=== PATIENT | female | born 1940 | race Caucasian/White ===

== ENCOUNTER → 2017-11-24 | Outpatient (CLI) | payer MEDICARE ==
[~2017-11-24] MED LIST: APIX5TAB PO; ASCO500C18 PO; DIPH1TAB PO; FOLI0.8T22 PO; FURO40TA5 PO; GABA-529 PO; GLIP5TAB11 PO; MAGN250T10 PO; MEMA5TAB15 PO; METO25TA6 PO; POTA10TA11 PO; POTA20TA12 PO; ROPI3TAB3 PO; ROSU5TAB18 PO; SUCR1TAB2 PO; VITA400C19 PO
== END ==
LOC: RAH 09:16
PROVIDERS: ATTEND Physician Assistant Medical
DX: M25.711 Osteophyte, right shoulder (principal)
CPT/HCPCS: 73200

== ENCOUNTER → 2017-12-23 | Outpatient (CLI) | payer MEDICARE ==
[~2017-12-23] MED LIST changes: +ROSU5TAB11 PO; -ROSU5TAB18 PO
== END | disposition home or self-care (01) ==
LOC: RAH 13:24
PROVIDERS: ATTEND Physician Assistant Medical
DX: M47.896 Other spondylosis, lumbar region (principal); M47.892 Other spondylosis, cervical region; M41.86 Other forms of scoliosis, lumbar region; M85.89 Other specified disorders of bone density and structure, multiple sites; J90 Pleural effusion, not elsewhere classified; I70.90 Unspecified atherosclerosis
CPT/HCPCS: 72125; 72131

== ENCOUNTER → 2018-01-28 | Outpatient (CLI) | payer MEDICARE ==
[~2018-01-28] MED LIST changes: +REGADENOSON 0.4 MG/5 ML PF SYG IVP ONE
== END | disposition home or self-care (01) ==
LOC: SHCH 08:59
PROVIDERS: ATTEND Internal Medicine Cardiovascular Disease
DX: I25.119 Atherosclerotic heart disease of native coronary artery with unspecified angina pectoris (principal)
CPT/HCPCS: 78452; 93017; 96374; A9500 ×2; J2785

== ENCOUNTER 2018-02-04 18:00 | Inpatient (IN) | payer MEDICARE ==
[~2018-02-04] VITALS: Ht 147.3 cm; Wt 70.9 kg
[~2018-02-04 18:00] MED LIST changes: -POTA20TA12 PO; -REGADENOSON 0.4 MG/5 ML PF SYG IVP ONE; -ROSU5TAB11 PO
[2018-02-04] MEDS ORDERED: NITROGLYCERIN 0.4 MG SL TAB SL ONE (18:36)
[2018-02-04] MEDS ORDERED: SODIUM CHLORIDE 0.9% 250 ML IV ONE (18:36)
[2018-02-04] MEDS ORDERED: NITROGLYCERIN 1GM/1 INCH PACKET TD ONE (18:36)
[2018-02-04 18:40] LABS: BASOPHILS % (AUTO) 0.5 % (0.0-5.0); EOSINOPHILS % (AUTO) 1.4 % (0.0-8.0); HEMATOCRIT 30.5 % (36-48); LYMPHOCYTES % (AUTO) 10.8 % (21.0-51.0); MEAN CORPUSCULAR HGB CONC 35.3 g/dL (32.0-36.0); MEAN CORPUSCULAR VOLUME 96.3 fL (79-99); MONOCYTES % (AUTO) 8.3 % (3.0-13.0); NUCLEATED RED BLOOD CELLS 0.1 % (0.0-0.19); PLATELET COUNT (AUTO) 177 K/uL (130-400); RED BLOOD CELL COUNT(AUTO) 3.17 MIL/uL (4.00-5.50); RED CELL DISTRIBUTION WIDTH 15.9 % (11.0-15.5); WHITE BLOOD COUNT (AUTO) 5.2 K/uL (4.8-10.8)
[2018-02-04 18:53] LABS: CREATININE 1.8 mg/dL (0.5-1.5); POTASSIUM 4.4 mmol/L (3.5-5.1)
[2018-02-04 18:54] LABS: INR 1.03 (0.85-1.15); PARTIAL THROMBOPLASTIN TIME 26.6 SEC (26.3-35.5); PROTHROMBIN TIME 10.8 SEC (9.6-11.6)
[2018-02-04 18:58] LABS: ALBUMIN 3.1 g/dL (3.5-5.0); BILIRUBIN,TOTAL 0.7 mg/dL (0.2-1.0); TOTAL PROTEIN, SERUM 6.4 g/dL (6.0-8.3)
[2018-02-04] MEDS ORDERED: ONDANSETRON HCL 4 MG/2 ML VIAL ONE (19:37)
[2018-02-04] MEDS ORDERED: MORPHINE SULFATE 2 MG/ML 1ML SYG ONE ×2 (19:37→22:00)
[2018-02-05] VITALS (7 sets, daily range): BP systolic 108–131; BP diastolic 56–74
[2018-02-05] MEDS ORDERED: TRAMADOL HCL 50 MG TABLET PO PRN (02:15)
[2018-02-05 05:31] LABS: CREATINE KINASE MB 0.6 ng/mL (0.5-3.6); CREATINE KINASE, TOTAL 49 U/L (21-232); MYOGLOBIN 79 ng/mL (10-92); TROPONIN I < 0.04 ng/mL (0.00-0.06)
[2018-02-05] MEDS ORDERED: LABETALOL HCL 100 MG TABLET PO SCH (09:00)
[2018-02-05] MEDS ORDERED: ROPINIROLE HCL 1 MG TABLET PO SCH (09:00)
[2018-02-05] MEDS: ASPIRIN 81MG TAB.CHEW PO SCH (09:17)
[2018-02-05] MEDS ORDERED: AZITHROMYCIN 500MG+NS 250ML 250 ML IV SCH (09:45)
[2018-02-05] MEDS: APIXABAN 5 MG TABLET PO SCH ×2 (09:45→21:45)
[2018-02-05] MEDS ORDERED: CEFTRIAXONE 1GM/D5W 50ML 50 ML IV SCH (09:45)
[2018-02-05 09:47] LABS: CREATINE KINASE MB < 0.5 ng/mL (0.5-3.6); CREATINE KINASE, TOTAL 39 U/L (21-232); MYOGLOBIN 90 ng/mL (10-92); TROPONIN I < 0.04 ng/mL (0.00-0.06)
[2018-02-05] MEDS ORDERED: ACETAMINOPHEN 325 MG TAB PO PRN (10:00)
[2018-02-05] MEDS ORDERED: GLUCAGON 1MG KIT 1 MG ML IM PRN (10:00)
[2018-02-05] MEDS ORDERED: DEXTROSE 50%-WATER 50 ML DISP.SYRIN IV PRN (10:00)
[2018-02-05] MEDS: IPRATROPIUM/ALBUTEROL SULFATE 3 ML SOLUTION IH SCH ×2 (11:08→18:05)
[2018-02-05] MEDS: INSULIN HUMULIN R 100 UNIT/ML 3ML SQ SCH ×3 (11:30→21:00)
[2018-02-05] MEDS: CEFTRIAXONE SODIUM 1 GM IVP SCH (11:49)
[2018-02-05] MEDS: FUROSEMIDE 10 MG/ML 4ML VIAL IV SCH (13:58)
[2018-02-05 16:05] LABS: APPEARANCE,URINE Clear (CLEAR); BILIRUBIN,URINE Negative (NEGATIVE); COLOR,URINE Yellow (YELLOW); GLUCOSE, URINE (UA) Negative (NEGATIVE); KETONES,URINE Negative (NEGATIVE); LEUKOCYTE ESTERASE ,URINE Small (NEGATIVE); NITRATE,URINE Negative (NEGATIVE); OCCULT BLOOD,URINE Negative (NEGATIVE); PROTEIN,URINE Negative (NEGATIVE); UROBILINOGEN,URINE 0.2 mg/dL (0.2-1.0)
[2018-02-05 16:24] LABS: BACTERIA,URINE Rare /HPF (None Seen); RBC,URINE 0-1 /HPF (0-1); SQUAMOUS EPITHELIAL CELL,UR 0-2 /HPF (0-2)
[2018-02-05] MEDS: METHYLPREDNISOLONE SOD SUCC 40MG/ML 1ML IVP SCH (22:46)
[2018-02-05] MEDS: MEMANTINE HCL 5 MG TABLET PO SCH (22:46)
[2018-02-05] MEDS: METOPROLOL TARTRATE 25 MG TAB PO SCH (22:46)
[2018-02-06] MEDS: IPRATROPIUM/ALBUTEROL SULFATE 3 ML SOLUTION IH SCH ×5 (00:05→23:26)
[2018-02-06 03:57] LABS: CREATININE 1.9 mg/dL (0.5-1.5); POTASSIUM 4.1 mmol/L (3.5-5.1)
[2018-02-06 04:08] LABS: HEMATOCRIT 30.2 % (36-48); MEAN CORPUSCULAR HEMOGLOBIN 33.2 pg (27.0-33.0); MEAN CORPUSCULAR HGB CONC 34.6 g/dL (32.0-36.0); MEAN CORPUSCULAR VOLUME 96.1 fL (79-99); PLATELET COUNT (AUTO) 162 K/uL (130-400); RED BLOOD CELL COUNT(AUTO) 3.15 MIL/uL (4.00-5.50); RED CELL DISTRIBUTION WIDTH 15.5 % (11.0-15.5); WHITE BLOOD COUNT (AUTO) 5.5 K/uL (4.8-10.8)
[2018-02-06 04:17] VITALS: BP 121/77
[2018-02-06] MEDS: INSULIN HUMULIN R 100 UNIT/ML 3ML SQ SCH ×4 (06:41→21:09)
[2018-02-06 07:34] VITALS: BP 138/87
[2018-02-06] MEDS: APIXABAN 5 MG TABLET PO SCH ×2 (09:40→20:19)
[2018-02-06] MEDS: FOLIC ACID/VITAMIN B COMP W-C 1 MG CAPSULE PO SCH (09:42)
[2018-02-06] MEDS: ASCORBIC ACID 500 MG TAB PO SCH (09:42)
[2018-02-06] MEDS: ASPIRIN 81MG TAB.CHEW PO SCH (09:42)
[2018-02-06] MEDS: METHYLPREDNISOLONE SOD SUCC 40MG/ML 1ML IVP SCH ×2 (09:43→20:16)
[2018-02-06] MEDS: METOPROLOL TARTRATE 25 MG TAB PO SCH ×2 (09:43→20:17)
[2018-02-06] MEDS: ROPINIROLE HCL 1 MG TABLET PO SCH (09:43)
[2018-02-06] MEDS: VITAMIN E 400 UNIT CAPSULE PO SCH (09:43)
[2018-02-06] MEDS: MEMANTINE HCL 5 MG TABLET PO SCH ×2 (09:43→20:17)
[2018-02-06] MEDS: CEFTRIAXONE SODIUM 1 GM IVP SCH (09:44)
[2018-02-06 11:15] VITALS: BP 126/78
[2018-02-06] MEDS: FUROSEMIDE 10 MG/ML 4ML VIAL IV SCH (13:00)
[2018-02-06] MEDS: AMOXICILLIN/POTASSIUM CLAV 875-125 TABLET PO SCH ×2 (14:18→20:16)
[2018-02-06] MEDS: AZITHROMYCIN 250 MG TABLET PO SCH (14:19)
[2018-02-06 16:14] VITALS: BP 125/65
[2018-02-06 19:24] VITALS: BP 120/51
[2018-02-06 23:56] VITALS: BP 127/69
[2018-02-07 03:40] VITALS: BP 135/75
[2018-02-07 03:49] LABS: HEMATOCRIT 29.5 % (36-48); MEAN CORPUSCULAR HEMOGLOBIN 32.5 pg (27.0-33.0); MEAN CORPUSCULAR HGB CONC 34.3 g/dL (32.0-36.0); MEAN CORPUSCULAR VOLUME 94.8 fL (79-99); PLATELET COUNT (AUTO) 171 K/uL (130-400); RED BLOOD CELL COUNT(AUTO) 3.11 MIL/uL (4.00-5.50); RED CELL DISTRIBUTION WIDTH 15.3 % (11.0-15.5); WHITE BLOOD COUNT (AUTO) 7.6 K/uL (4.8-10.8)
[2018-02-07 03:58] LABS: CREATININE 1.8 mg/dL (0.5-1.5); POTASSIUM 4.7 mmol/L (3.5-5.1)
[2018-02-07 03:59] LABS: B-TYPE NATRIURETIC PEPTIDE 1720 pg/mL (0-100)
[2018-02-07] MEDS: IPRATROPIUM/ALBUTEROL SULFATE 3 ML SOLUTION IH SCH ×4 (06:05→23:35)
[2018-02-07] MEDS: INSULIN HUMULIN R 100 UNIT/ML 3ML SQ SCH ×4 (06:43→22:28)
[2018-02-07 07:45] VITALS: BP 127/72
[2018-02-07] MEDS: ASCORBIC ACID 500 MG TAB PO SCH (08:26)
[2018-02-07] MEDS: METOPROLOL TARTRATE 25 MG TAB PO SCH ×2 (08:26→22:20)
[2018-02-07] MEDS: VITAMIN E 400 UNIT CAPSULE PO SCH (08:26)
[2018-02-07] MEDS: ASPIRIN 81MG TAB.CHEW PO SCH (08:26)
[2018-02-07] MEDS: AMOXICILLIN/POTASSIUM CLAV 875-125 TABLET PO SCH ×2 (08:26→22:20)
[2018-02-07] MEDS: FOLIC ACID/VITAMIN B COMP W-C 1 MG CAPSULE PO SCH (08:26)
[2018-02-07] MEDS: MEMANTINE HCL 5 MG TABLET PO SCH ×2 (08:26→22:20)
[2018-02-07] MEDS: ROPINIROLE HCL 1 MG TABLET PO SCH (08:27)
[2018-02-07] MEDS: METHYLPREDNISOLONE SOD SUCC 40MG/ML 1ML IVP SCH (08:33)
[2018-02-07] MEDS: APIXABAN 5 MG TABLET PO SCH (08:33)
[2018-02-07] MEDS: AZITHROMYCIN 250 MG TABLET PO SCH (08:33)
[2018-02-07] MEDS ORDERED: SODIUM CHLORIDE 0.9% 500ML 500 ML IV SCH (09:53)
[2018-02-07] MEDS: FUROSEMIDE 20 MG TABLET PO SCH ×2 (10:51→18:50)
[2018-02-07 11:23] VITALS: BP 125/68
[2018-02-07] MEDS: FUROSEMIDE 10 MG/ML 4ML VIAL IV SCH (13:00)
[2018-02-07 16:22] VITALS: BP 116/79
[2018-02-07 19:38] VITALS: BP 115/71
[2018-02-07 23:58] VITALS: BP 129/50
[2018-02-08 03:56] LABS: BASOPHILS % (AUTO) 0.3 % (0.0-5.0); HEMATOCRIT 28.9 % (36-48); LYMPHOCYTES % (AUTO) 2.9 % (21.0-51.0); MEAN CORPUSCULAR VOLUME 94.3 fL (79-99); MONOCYTES % (AUTO) 3.4 % (3.0-13.0); NEUTROPHILS % (AUTO) 93.4 % (40.0-77.0); PLATELET COUNT (AUTO) 192 K/uL (130-400); RED BLOOD CELL COUNT(AUTO) 3.06 MIL/uL (4.00-5.50); RED CELL DISTRIBUTION WIDTH 15.1 % (11.0-15.5); WHITE BLOOD COUNT (AUTO) 7.6 K/uL (4.8-10.8)
[2018-02-08 04:02] LABS: CREATININE 1.9 mg/dL (0.5-1.5); POTASSIUM 4.3 mmol/L (3.5-5.1)
[2018-02-08 04:05] VITALS: BP 118/63
[2018-02-08 04:05] LABS: INR 1.03 (0.85-1.15); PARTIAL THROMBOPLASTIN TIME 25.8 SEC (26.3-35.5); PROTHROMBIN TIME 10.8 SEC (9.6-11.6)
[2018-02-08] MEDS ORDERED: PHARMACY COMMUNICATION MISC SCH (06:00)
[2018-02-08] MEDS: IPRATROPIUM/ALBUTEROL SULFATE 3 ML SOLUTION IH SCH ×3 (06:05→18:23)
[2018-02-08] MEDS: INSULIN HUMULIN R 100 UNIT/ML 3ML SQ SCH ×4 (06:16→20:52)
[2018-02-08] MEDS ORDERED: METHYLPREDNISOLONE 4 MG TABLET ONE (06:26)
[2018-02-08] MEDS: MEDROL DAY 1 BREAKFAST PO NR (06:44)
[2018-02-08 07:20] VITALS: BP 138/73
[2018-02-08] MEDS ORDERED: AZITHROMYCIN 250 MG TABLET PO ONE (08:14)
[2018-02-08] MEDS: AZITHROMYCIN 250 MG TABLET PO SCH (08:40)
[2018-02-08] MEDS: MEMANTINE HCL 5 MG TABLET PO SCH ×2 (08:40→20:51)
[2018-02-08] MEDS: METOPROLOL TARTRATE 25 MG TAB PO SCH ×2 (08:40→20:51)
[2018-02-08] MEDS: ROPINIROLE HCL 1 MG TABLET PO SCH (08:40)
[2018-02-08] MEDS: ASPIRIN 81MG TAB.CHEW PO SCH (08:40)
[2018-02-08] MEDS: ASCORBIC ACID 500 MG TAB PO SCH (08:41)
[2018-02-08] MEDS: FOLIC ACID/VITAMIN B COMP W-C 1 MG CAPSULE PO SCH (08:41)
[2018-02-08] MEDS: VITAMIN E 400 UNIT CAPSULE PO SCH (08:42)
[2018-02-08] MEDS: AMOXICILLIN/POTASSIUM CLAV 875-125 TABLET PO SCH ×2 (08:42→20:51)
[2018-02-08] MEDS: FUROSEMIDE 20 MG TABLET PO SCH (08:44)
[2018-02-08 11:10] VITALS: BP 128/67
[2018-02-08] MEDS: MEDROL DAY 1 LUNCH AND DINNER PO NR ×2 (12:44→17:21)
[2018-02-08 16:05] VITALS: BP 125/69
[2018-02-08 19:47] VITALS: BP 132/72
[2018-02-08] MEDS ORDERED: MEDROL DAY1 HS PO NR (21:00)
[2018-02-09] VITALS (12 sets, daily range): BP systolic 112–154; BP diastolic 63–90
[2018-02-09] MEDS: IPRATROPIUM/ALBUTEROL SULFATE 3 ML SOLUTION IH SCH ×4 (00:11→23:52)
[2018-02-09] MEDS: INSULIN HUMULIN R 100 UNIT/ML 3ML SQ SCH ×4 (05:45→21:00)
[2018-02-09] MEDS ORDERED: MEDROL DAY 2 BRK PO NR (07:30)
[2018-02-09 08:02] LABS: CREATININE 1.8 mg/dL (0.5-1.5); POTASSIUM 4.1 mmol/L (3.5-5.1)
[2018-02-09] MEDS: MEMANTINE HCL 5 MG TABLET PO SCH ×2 (08:49→21:17)
[2018-02-09] MEDS: ASPIRIN 81MG TAB.CHEW PO SCH (08:49)
[2018-02-09] MEDS: FOLIC ACID/VITAMIN B COMP W-C 1 MG CAPSULE PO SCH (08:49)
[2018-02-09] MEDS: METOPROLOL TARTRATE 25 MG TAB PO SCH ×2 (08:49→21:17)
[2018-02-09] MEDS: ROPINIROLE HCL 1 MG TABLET PO SCH (08:49)
[2018-02-09] MEDS: AMOXICILLIN/POTASSIUM CLAV 875-125 TABLET PO SCH ×2 (08:49→21:17)
[2018-02-09] MEDS: VITAMIN E 400 UNIT CAPSULE PO SCH (08:50)
[2018-02-09] MEDS: AZITHROMYCIN 250 MG TABLET PO SCH (08:50)
[2018-02-09] MEDS ORDERED: SODIUM CHLORIDE 0.9% 1000ML 1,000 ML IV SCH (09:15)
[2018-02-09] MEDS: MEDROL DAY 1 BREAKFAST PO NR (09:22)
[2018-02-09] MEDS ORDERED: ISOVUE-370 50ML VIAL IV ONE (09:57)
[2018-02-09] MEDS ORDERED: NITROGLYCERIN 5 MG/ML 10 ML VIAL IV ONE (09:57)
[2018-02-09] MEDS ORDERED: BIVALIRUDIN 250 MG/VIAL IV ONE (09:57)
[2018-02-09] MEDS ORDERED: IOPAMIDOL-370 75 ML VIAL IV ONE (09:57)
[2018-02-09] MEDS ORDERED: LIDOCAINE HCL 2% 20ML ONE (09:57)
[2018-02-09] MEDS ORDERED: MEDROL DAY 2 LCH PO NR (11:30)
[2018-02-09] MEDS: SODIUM CHLORIDE 0.9% 1000ML 1,000 ML IV SCH ×2 (13:12→22:18)
[2018-02-09] MEDS: FUROSEMIDE 40 MG TABLET PO SCH (13:23)
[2018-02-09] MEDS ORDERED: MEDROL DAY 2 DIN PO NR (16:30)
[2018-02-09] MEDS ORDERED: MEDROL DAY 2 HS PO NR (21:00)
[2018-02-10 00:35] VITALS: BP 118/67
[2018-02-10 04:01] LABS: CREATININE 1.7 mg/dL (0.5-1.5); POTASSIUM 3.3 mmol/L (3.5-5.1)
[2018-02-10 04:57] VITALS: BP 123/74
[2018-02-10] MEDS: IPRATROPIUM/ALBUTEROL SULFATE 3 ML SOLUTION IH SCH ×2 (06:05→11:18)
[2018-02-10] MEDS: INSULIN HUMULIN R 100 UNIT/ML 3ML SQ SCH ×2 (07:30→12:59)
[2018-02-10] MEDS ORDERED: MEDROL DAY 3 PO NR (07:30)
[2018-02-10 08:24] VITALS: BP 124/74
[2018-02-10] MEDS ORDERED: AZITHROMYCIN 250 MG TABLET PO SCH (09:00)
[2018-02-10] MEDS: MEMANTINE HCL 5 MG TABLET PO SCH (09:07)
[2018-02-10] MEDS: AMOXICILLIN/POTASSIUM CLAV 875-125 TABLET PO SCH (09:08)
[2018-02-10] MEDS: FOLIC ACID/VITAMIN B COMP W-C 1 MG CAPSULE PO SCH (09:08)
[2018-02-10] MEDS: METOPROLOL TARTRATE 25 MG TAB PO SCH (09:08)
[2018-02-10] MEDS: FUROSEMIDE 40 MG TABLET PO SCH (09:08)
[2018-02-10] MEDS: VITAMIN E 400 UNIT CAPSULE PO SCH (09:08)
[2018-02-10] MEDS: ROPINIROLE HCL 1 MG TABLET PO SCH (09:08)
[2018-02-10] MEDS ORDERED: POTASSIUM CHLORIDE 20 MEQ ERTAB PO PRN (10:15)
[2018-02-10] MEDS ORDERED: LIDOCAINE HCL-MPF 1% 2ML VIAL IVP PRN (10:15)
[2018-02-10] MEDS ORDERED: POTASSIUM CHLORIDE 20MEQ/100ML 100 ML IV PRN (10:15)
[2018-02-10] MEDS ORDERED: POTASSIUM CHLORIDE 10% ELIXIR 20 MEQ/15 ML UDCUP PO PRN (10:15)
[2018-02-10] MEDS ORDERED: ASPIRIN 81MG TAB.CHEW PO SCH (10:15)
[2018-02-10 12:23] VITALS: BP 123/83
[2018-02-10] MEDS ORDERED: POTA20TA12 PO (14:35)
[2018-02-10] MEDS ORDERED: ROSU5TAB11 PO (14:35)
[2018-02-11] MEDS ORDERED: MEDROL DAY 4 BKF PO NR (07:30)
[2018-02-11] MEDS ORDERED: MEDROL DAY 4 LCH PO NR (11:30)
[2018-02-11] MEDS ORDERED: MEDROL DAY 4 DIN PO NR (16:30)
[2018-02-12] MEDS ORDERED: MEDROL DAY 5 BKF PO NR (07:30)
[2018-02-12] MEDS ORDERED: MEDROL DAY 5 HS PO NR (21:00)
[2018-02-13] MEDS ORDERED: MEDROL DAY 6 PO NR (07:30)
== END 2018-02-10 17:00 | disposition home or self-care (01) | DRG 286 ==
LOC: EDH 18:00 → EDHIP 21:56 → OBSVTOIN 21:56 → 2AH 02-05 01:32
PROVIDERS: ADMIT Internal Medicine; ATTEND Internal Medicine
PROC: 4A023N7 Measurement of Cardiac Sampling and Pressure, Left Heart, Percutaneous Approach (ICD-10-PCS; principal; 2018-02-04)
PROC: B41F1ZZ Fluoroscopy of Right Lower Extremity Arteries using Low Osmolar Contrast (ICD-10-PCS; 2018-02-09)
PROC: B2111ZZ Fluoroscopy of Multiple Coronary Arteries using Low Osmolar Contrast (ICD-10-PCS; 2018-02-09)
DX: T82.858A Stenosis of other vascular prosthetic devices, implants and grafts, initial encounter (principal); J18.9 Pneumonia, unspecified organism; I50.43 Acute on chronic combined systolic (congestive) and diastolic (congestive) heart failure; I25.110 Atherosclerotic heart disease of native coronary artery with unstable angina pectoris; N17.9 Acute kidney failure, unspecified; I13.0 Hypertensive heart and chronic kidney disease with heart failure and stage 1 through stage 4 chronic kidney disease, or unspecified chronic kidney disease; N18.4 Chronic kidney disease, stage 4 (severe); E11.22 Type 2 diabetes mellitus with diabetic chronic kidney disease; I35.0 Nonrheumatic aortic (valve) stenosis; M19.90 Unspecified osteoarthritis, unspecified site; D63.1 Anemia in chronic kidney disease; E11.51 Type 2 diabetes mellitus with diabetic peripheral angiopathy without gangrene; E78.00 Pure hypercholesterolemia, unspecified; E78.5 Hyperlipidemia, unspecified; F03.90 Unspecified dementia, unspecified severity, without behavioral disturbance, psychotic disturbance, mood disturbance, and anxiety; F32.9 Major depressive disorder, single episode, unspecified; F41.9 Anxiety disorder, unspecified; G47.33 Obstructive sleep apnea (adult) (pediatric); G89.4 Chronic pain syndrome; I48.0 Paroxysmal atrial fibrillation; I48.2 Chronic atrial fibrillation; I77.1 Stricture of artery; I95.1 Orthostatic hypotension; K21.9 Gastro-esophageal reflux disease without esophagitis; Y83.9 Surgical procedure, unspecified as the cause of abnormal reaction of the patient, or of later complication, without mention of misadventure at the time of the procedure; M79.7 Fibromyalgia; Z79.899 Other long term (current) drug therapy; Z79.01 Long term (current) use of anticoagulants; Y92.89 Other specified places as the place of occurrence of the external cause; Z95.5 Presence of coronary angioplasty implant and graft; Z95.0 Presence of cardiac pacemaker; Z90.710 Acquired absence of both cervix and uterus; Z87.891 Personal history of nicotine dependence; Z90.10 Acquired absence of unspecified breast and nipple; Z85.3 Personal history of malignant neoplasm of breast; Z82.3 Family history of stroke; Z80.3 Family history of malignant neoplasm of breast; Z82.49 Family history of ischemic heart disease and other diseases of the circulatory system
CPT/HCPCS: 36415; 71045; 71250; 80048; 80053; 81001; 82550; 82553; 82948; 83735; 83874; 83880; 84132; 84484; 85025; 85027; 85610; 85730; 87040; 87088; 93005; 93306; 93458; 93925; 93971; 94640; 94664; A4218; C1760; C1894; J0456; J0583; J0696; J1644; J1815; J1940; J2405; J2920; J3490; J7030; J7509; Q9967

== ENCOUNTER → 2018-07-14 | Outpatient (CLI) | payer MEDICARE ==
[~2018-07-14] MED LIST changes: -POTA10TA11 PO; +POTA20TA12 PO; -ROPI3TAB3 PO; +ROPI3TAB5 PO; +ROSU5TAB11 PO
== END | disposition home or self-care (01) ==
LOC: RAH 09:07
PROVIDERS: ATTEND Internal Medicine Cardiovascular Disease
DX: I50.22 Chronic systolic (congestive) heart failure (principal); I25.10 Atherosclerotic heart disease of native coronary artery without angina pectoris; I48.91 Unspecified atrial fibrillation; E11.9 Type 2 diabetes mellitus without complications
CPT/HCPCS: 71046

== ENCOUNTER → 2019-01-19 | Outpatient (CLI) | payer MEDICARE ==
[~2019-01-19] MED LIST changes: -ASCO500C18 PO; +BACL10TA PO; -DIPH1TAB PO; +ESOM20CA31 PO; +FERS325 PO; -FURO40TA5 PO; +FURO40TA7 PO; +GLIP10TA9 PO; -GLIP5TAB11 PO; +LEVO500T2 PO; +METR250T PO; +ROPI1TAB38 PO; -ROPI3TAB5 PO; +SERT50TA12 PO; -SUCR1TAB2 PO; +TOLT4CAP13 PO
== END | disposition home or self-care (01) ==
LOC: RAH 10:48
PROVIDERS: ATTEND Internal Medicine Critical Care Medicine
DX: I73.9 Peripheral vascular disease, unspecified (principal)
CPT/HCPCS: 93922

== ENCOUNTER 2019-06-20 11:36 | Inpatient (IN) | payer MEDICARE, OTHER ==
[~2019-06-20] VITALS: Ht 147.3 cm; Wt 59.5 kg
[~2019-06-20 11:36] MED LIST changes: -ROSU5TAB11 PO; +ROSU5TAB12 PO
[2019-06-20 11:58] LABS: BASOPHILS % (AUTO) 0.6 % (0.0-5.0); EOSINOPHILS % (AUTO) 0.1 % (0.0-8.0); HEMATOCRIT 39.1 % (36-48); LYMPHOCYTES % (AUTO) 2.7 % (21.0-51.0); MEAN CORPUSCULAR HEMOGLOBIN 31.9 pg (27.0-33.0); MEAN CORPUSCULAR HGB CONC 32.8 g/dL (32.0-36.0); MEAN CORPUSCULAR VOLUME 97.4 fL (79-99); MONOCYTES % (AUTO) 8.3 % (3.0-13.0); NEUTROPHILS % (AUTO) 88.3 % (40.0-77.0); NUCLEATED RED BLOOD CELLS 1.1 % (0.0-0.19); PLATELET COUNT (AUTO) 99 K/uL (130-400); RED BLOOD CELL COUNT(AUTO) 4.01 MIL/uL (4.00-5.50); RED CELL DISTRIBUTION WIDTH 20.2 % (11.0-15.5); WHITE BLOOD COUNT (AUTO) 10.2 K/uL (4.8-10.8)
[2019-06-20 12:11] LABS: CREATININE 3.9 mg/dL (0.5-1.5); MAGNESIUM 2.9 mg/dL (1.80-2.40)
[2019-06-20 12:32] LABS: PLATELET MORPHOLOGY COMMENT DECREASED
[2019-06-20 12:33] LABS: B-TYPE NATRIURETIC PEPTIDE > 5000 pg/mL (0-100)
[2019-06-20] MEDS ORDERED: CALCIUM GLUCONATE 1 GM/10 ML VIAL IV ONE (13:13)
[2019-06-20] MEDS ORDERED: SODIUM CHLORIDE 0.9% 100 ML IV ONE (13:13)
[2019-06-20] MEDS ORDERED: SODIUM CHLORIDE 0.9% 250 ML IV ONE ×2 (13:15→13:16)
[2019-06-20] MEDS ORDERED: ONDANSETRON HCL 4 MG/2 ML VIAL ONE (14:35)
[2019-06-20] MEDS ORDERED: MORPHINE SULFATE 2 MG/ML 1ML SYG ONE (15:22)
[2019-06-20 16:00] LABS: POTASSIUM 5.9 mmol/L (3.5-5.1)
[2019-06-20] MEDS ORDERED: SODIUM POLYSTYRENE SULFONATE 15 GM/60 ML ML PO SCH (16:00)
[2019-06-20 16:18] LABS: CREATININE,URINE RANDOM 166 mg/dL (30-135); SODIUM,URINE RANDOM < 15 mmol/l (40-220)
[2019-06-20] MEDS ORDERED: SODIUM POLYSTYRENE SULFONATE 15 GM/60 ML ML ONE (16:41)
[2019-06-20 19:15] LABS: APPEARANCE,URINE Clear (CLEAR); BILIRUBIN,URINE Small (NEGATIVE); COLOR,URINE Dark Yellow (YELLOW); GLUCOSE, URINE (UA) Negative (NEGATIVE); KETONES,URINE Negative (NEGATIVE); LEUKOCYTE ESTERASE ,URINE Negative (NEGATIVE); NITRATE,URINE Negative (NEGATIVE); OCCULT BLOOD,URINE Negative (NEGATIVE); PROTEIN,URINE POS 1+ mg/dL (NEGATIVE)
[2019-06-20 19:19] LABS: BACTERIA,URINE Few /HPF (None Seen); SQUAMOUS EPITHELIAL CELL,UR 0-2 /HPF (0-2)
[2019-06-20 19:20] LABS: AMORPHOUS SEDIMENT,UR Few /LPF (None Seen); MUCUS,URINE Few LPF (None Seen)
[2019-06-20] MEDS ORDERED: FUROSEMIDE 10 MG/ML 4ML VIAL ONE (23:16)
[2019-06-21] VITALS (7 sets, daily range): BP systolic 100–124; BP diastolic 52–75
[2019-06-21 05:34] LABS: BASOPHILS % (AUTO) 0.2 % (0.0-5.0); HEMATOCRIT 35.4 % (36-48); LYMPHOCYTES % (AUTO) 3.6 % (21.0-51.0); MEAN CORPUSCULAR HEMOGLOBIN 31.2 pg (27.0-33.0); MEAN CORPUSCULAR HGB CONC 32.9 g/dL (32.0-36.0); MEAN CORPUSCULAR VOLUME 94.7 fL (79-99); MONOCYTES % (AUTO) 5.5 % (3.0-13.0); NEUTROPHILS % (AUTO) 90.7 % (40.0-77.0); NUCLEATED RED BLOOD CELLS 1.1 % (0.0-0.19); PLATELET COUNT (AUTO) 81 K/uL (130-400); RED BLOOD CELL COUNT(AUTO) 3.74 MIL/uL (4.00-5.50); RED CELL DISTRIBUTION WIDTH 20.4 % (11.0-15.5); WHITE BLOOD COUNT (AUTO) 11.7 K/uL (4.8-10.8)
[2019-06-21 06:04] LABS: ALBUMIN 3.1 g/dL (3.5-5.0); BILIRUBIN,TOTAL 2.3 mg/dL (0.2-1.0); CREATININE 3.9 mg/dL (0.5-1.5); MAGNESIUM 2.4 mg/dL (1.80-2.40); POTASSIUM 5.6 mmol/L (3.5-5.1); TOTAL PROTEIN, SERUM 6.1 g/dL (6.0-8.3)
[2019-06-21] MEDS ORDERED: LIDOCAINE HCL-MPF 1% 2ML VIAL IV PRN (08:30)
[2019-06-21] MEDS ORDERED: POTASSIUM CHLORIDE 20MEQ/100ML 100 ML IV PRN (08:30)
[2019-06-21] MEDS ORDERED: POTASSIUM CHLORIDE 20 MEQ ERTAB PO PRN (08:30)
[2019-06-21] MEDS: FUROSEMIDE 10 MG/ML 4ML VIAL IVP SCH ×3 (10:01→16:22)
[2019-06-21] MEDS ORDERED: SODIUM POLYSTYRENE SULFONATE 15 GM/60 ML ML PO SCH (10:15)
--- NOTE | 2019-06-21 13:40 | NUR ---
DC PLAN PATIENT AAOX2, DROWSY AND LETHARGIC. FAMILY MEMBER NOT AT BEDSIDE, INITIAL ASSESSMENT PENDING. Addendum: 06/21/19 at 1341 by JOAO LEAL Amended: Links added.
[2019-06-21] MEDS ORDERED: CARB-37 PO (15:34)
[2019-06-21] MEDS ORDERED: METO100T14 PO (15:34)
[2019-06-21] MEDS ORDERED: LEVE250T2 PO (15:34)
[2019-06-21] MEDS ORDERED: GABA-529 PO (15:34)
[2019-06-21] MEDS ORDERED: SACU1TAB PO (15:34)
[2019-06-21] MEDS ORDERED: FURO20TA6 PO (15:34)
[2019-06-21] MEDS ORDERED: SITA25TA5 PO (15:34)
[2019-06-21] MEDS ORDERED: IRON150C5 PO (15:34)
[2019-06-21] MEDS ORDERED: POTA10CA44 PO (15:34)
[2019-06-21] MEDS ORDERED: SERT100T PO (15:34)
--- NOTE | 2019-06-21 16:32 | NUR ---
RD NOTIFICATION Dx: Acute on Chronic Systolic, CHF. Hx: Afib, CAD, DM, Morbid obese, CHF. Diet: 75gmCCD. Pt with poor po intake of <25%, due to being in and out of sleep, and has poor appetite. No difficulty chewing food according to the pt however, might have some difficulties swallowing. RD recommends continue current diet, add 1200mls fluid restriction, and renal non-dialysis to diet order. RD recommends CONTINUOUS CONVEYOR SCREEN DRIER evaluation due to swallowing difficulties. RD will continue to monitor and follow up as needed. Sol Holm MS, RDN Addendum: 06/21/19 at [address] RD Amended: Links added.
--- NOTE | 2019-06-21 19:00 | NUR ---
Assumed care at 1900. Patient resting in bed in no apparent distress. Vital signs stable. No complaints of pain. Patient alert and oriented to self. Please see assessment for further detail. Will continue to monitor.
[2019-06-21] MEDS: INSULIN HUMULIN R 100 UNIT/ML 3ML SQ SCH (21:46)
[2019-06-22] VITALS (19 sets, daily range): BP systolic 82–118; BP diastolic 39–76
[2019-06-22] MEDS: DOBUTAMINE 250MG/D5 250ML 250 ML IV PRN ×2 (01:06→21:51)
--- NOTE | 2019-06-22 01:15 | NUR ---
Patient about to receive dobutamine drip when she was found have sustained heart rate at 128. RICARDO Benito notified. 5mg metoprolol ordered for heart rate control, and to hold dobutamine for tonight. Will continue to monitor.
--- NOTE | 2019-06-22 01:30 | NUR ---
Informed RICARDO Benito 5mg lopressor having no effect. I am to inform RICARDO Benito if HR greater than 140 as per his direction. No additional orders given. Will continue to monitor.
[2019-06-22] MEDS ORDERED: METOPROLOL TARTRATE 1 MG/ML 5ML VIAL IV ONE (02:26)
[2019-06-22 03:58] LABS: HEMATOCRIT 34.2 % (36-48); MEAN CORPUSCULAR HEMOGLOBIN 31.8 pg (27.0-33.0); MEAN CORPUSCULAR VOLUME 93.4 fL (79-99); NUCLEATED RED BLOOD CELLS 0.6 % (0.0-0.19); PLATELET COUNT (AUTO) 62 K/uL (130-400); RED BLOOD CELL COUNT(AUTO) 3.66 MIL/uL (4.00-5.50); RED CELL DISTRIBUTION WIDTH 19.6 % (11.0-15.5); WHITE BLOOD COUNT (AUTO) 9.2 K/uL (4.8-10.8)
[2019-06-22 04:26] LABS: ALBUMIN 2.9 g/dL (3.5-5.0); BILIRUBIN,TOTAL 1.9 mg/dL (0.2-1.0); CREATININE 3.6 mg/dL (0.5-1.5); POTASSIUM 3.7 mmol/L (3.5-5.1); TOTAL PROTEIN, SERUM 5.7 g/dL (6.0-8.3)
[2019-06-22] MEDS: METOPROLOL TARTRATE 1 MG/ML 5ML VIAL IV PRN ×2 (06:22→16:02)
[2019-06-22] MEDS: INSULIN HUMULIN R 100 UNIT/ML 3ML SQ SCH ×4 (06:38→21:00)
[2019-06-22] MEDS: METOPROLOL TARTRATE 50 MG TAB PO SCH ×2 (08:52→20:31)
[2019-06-22] MEDS: FUROSEMIDE 10 MG/ML 4ML VIAL IVP SCH ×3 (08:53→15:41)
--- NOTE | 2019-06-22 19:45 | NUR ---
DR. NOLAND ROUNDING. PT STABLE. AT BEDSIDE. NEW ORDER FOR DIGOXIN. PT CONTINUES AFIB 110'S. GBW NOTED. MCKINNEY IN PLACE. DR. NOLAND SUGGESTING PALLIATIVE CARE. WILL SPEAK TO . AND INFORM PRIMARY DOCTOR.
[2019-06-22] MEDS ORDERED: DIGOXIN 250 MCG/ML 2ML AMP IV SCH (20:00)
[2019-06-23] VITALS (7 sets, daily range): BP systolic 79–112; BP diastolic 49–63
[2019-06-23] MEDS: DOBUTAMINE 250MG/D5 250ML 250 ML IV PRN (00:02)
[2019-06-23] MEDS: DIGOXIN 250 MCG/ML 2ML AMP IV SCH ×3 (00:05→12:30)
[2019-06-23] MEDS: FUROSEMIDE 10 MG/ML 4ML VIAL IVP SCH ×4 (00:05→23:17)
[2019-06-23 04:07] LABS: BASOPHILS % (AUTO) 0.4 % (0.0-5.0); HEMATOCRIT 41.9 % (36-48); LYMPHOCYTES % (AUTO) 8.5 % (21.0-51.0); MEAN CORPUSCULAR HEMOGLOBIN 31.4 pg (27.0-33.0); MEAN CORPUSCULAR HGB CONC 33.8 g/dL (32.0-36.0); MEAN CORPUSCULAR VOLUME 92.9 fL (79-99); MONOCYTES % (AUTO) 6.6 % (3.0-13.0); NEUTROPHILS % (AUTO) 82.5 % (40.0-77.0); NUCLEATED RED BLOOD CELLS 0.4 % (0.0-0.19); PLATELET COUNT (AUTO) 64 K/uL (130-400); RED BLOOD CELL COUNT(AUTO) 4.51 MIL/uL (4.00-5.50); RED CELL DISTRIBUTION WIDTH 20.1 % (11.0-15.5); WHITE BLOOD COUNT (AUTO) 6.3 K/uL (4.8-10.8)
[2019-06-23 04:38] LABS: ALBUMIN 3.1 g/dL (3.5-5.0); BILIRUBIN,DIRECT 1.4 mg/dL (0.0-0.3); BILIRUBIN,TOTAL 2.4 mg/dL (0.2-1.0); CREATININE 2.5 mg/dL (0.5-1.5); PHOSPHORUS 4.1 mg/dL (2.5-4.9); TOTAL PROTEIN, SERUM 6.5 g/dL (6.0-8.3)
[2019-06-23 04:48] LABS: POTASSIUM 2.7 mmol/L (3.5-5.1)
[2019-06-23] MEDS: POTASSIUM CHLORIDE 10% ELIXIR 20 MEQ/15 ML UDCUP PO PRN ×2 (05:19→20:30)
[2019-06-23] MEDS: INSULIN HUMULIN R 100 UNIT/ML 3ML SQ SCH ×5 (06:17→21:00)
[2019-06-23 08:11] LABS: HEPATITIS A ANTIBODY IGM Negative (Negative); HEPATITIS B CORE IGM Negative (Negative); HEPATITIS Bs ANTIGEN SCREEN P Negative (Negative)
[2019-06-23] MEDS: METOPROLOL TARTRATE 50 MG TAB PO SCH ×2 (10:50→20:27)
--- NOTE | 2019-06-23 14:44 | NUR ---
DCP: HOME WITH [facility] Sw met with pt and . Sw educated on hospice services and answered all questions asked. states his MD recommended [facility] and he would like to use them. SW assisted with completing OOHDNR. SW spoke to [facility] and made referral. Pt info faxed to [facility] office.Waiting on acceptance and DME delivery. Pt will need ambulance transport. CM aware.
--- NOTE | 2019-06-23 16:01 | NUR ---
[facility] HOSPICE REFERRAL, JAIME ELINA AWARE. SS WILL MEET WITH PATIENT AND FAMILY.
--- NOTE | 2019-06-23 16:45 | NUR ---
DCP: HOME WITH [facility] IN AM SW recd call from [facility]. Pt accepted. DME ordered and will be there in 2-3 hours. needing time to get house ready for DME, requesting am discharge for comfort of pt. CM aware and agrees.
[2019-06-23] MEDS ORDERED: POTASSIUM CHLORIDE 10MEQ/100ML 100 ML IV PRN (17:45)
[2019-06-23] MEDS ORDERED: POTASSIUM CHLORIDE 20 MEQ ERTAB PO PRN (17:45)
[2019-06-23] MEDS ORDERED: LIDOCAINE HCL-MPF 1% 2ML VIAL IV PRN (17:45)
[2019-06-23] MEDS ORDERED: POTASSIUM CHLORIDE 10% ELIXIR 20 MEQ/15 ML UDCUP PO PRN (17:45)
[2019-06-23] MEDS ORDERED: SODIUM CHLORIDE 0.9% 500ML 500 ML IV SCH (19:45)
--- NOTE | 2019-06-23 20:00 | NUR ---
PT BLOOD PRESSURE, 79/47. NOTIFIED AJ MANAGER OPERATING. STATED TO BOLUS WITH 500ML BAG. AFTER 30 MINUTES. BLOOD PRESSURE SHOWED MINIMAL IMPROVEMENTS.
[2019-06-24 03:00] VITALS: BP 82/61
[2019-06-24] MEDS: INSULIN HUMULIN R 100 UNIT/ML 3ML SQ SCH ×3 (06:26→16:30)
[2019-06-24] MEDS: POTASSIUM CHLORIDE 10% ELIXIR 20 MEQ/15 ML UDCUP PO PRN (06:26)
[2019-06-24 08:00] VITALS: BP 72/48
[2019-06-24] MEDS: FUROSEMIDE 10 MG/ML 4ML VIAL IVP SCH ×2 (08:00→16:00)
[2019-06-24] MEDS: METOPROLOL TARTRATE 50 MG TAB PO SCH (08:05)
--- NOTE | 2019-06-24 08:42 | NUR ---
DCP: ROMINA recd call from [facility]. DME was delivered last night and they are ready for pt to discharge. CM notified.
--- NOTE | 2019-06-24 10:45 | NUR ---
PT.'S SPOUSE ARRIVED, AT BEDSIDE. SPOUSE STATES WOULD LIKE PT. TO BE DISCHARGED AFTER 1500 DUE TO HE WILL NOT BE HOME PRIOR TO THAT; HE WILL BE PICKING UP HIS SON FROM [place] AND SHOULD BE HOME BY 1500.
--- NOTE | 2019-06-24 11:20 | NUR ---
REPORT TO DAMIAN RUIZ RN AT [facility].
--- NOTE | 2019-06-24 14:46 | NUR ---
DC PLAN PATIENT ACCEPTED YESTERDAY LATE AT NIGHT. EMS SET UP THIS MORNING. LET NURSE KNOW OF ACCEPTANCE. ORDER FOR DC IN CHART. Addendum: 06/24/19 at 1447 by ROMULO BARRETO RN CM Amended: Links added.
--- NOTE | 2019-06-24 15:14 | NUR ---
GIOVANNA NOTIFICATION/ FOLLOW UP Diet: 75gmCCD, Renal Non-Dialysis, Fluid restriction, 2gmNa. Po intake 25% and has poor appetite as per pt. Pt with poor intake for several weeks. She feels weak and is fragile. Skin intact, no edema noted. LBM: 06/23. RD recommends continue current diet. Okay to D/C fluid restriction. Offer Nepro TID. RD will continue to monitor and follow up as needed. Sol Holm MS, RDN Addendum: 06/24/19 at [address] Amended: Links added.
--- NOTE | 2019-06-24 15:15 | NUR ---
HL REMOVED, CATHETER INTACT.
--- NOTE | 2019-06-24 15:22 | NUR ---
EMS TRANSPORT REQUESTED.
--- NOTE | 2019-06-24 16:18 | NUR ---
SPOKE WITH EMS ONCE AGAIN. REQUESTED FORMS FAXED.
--- NOTE | 2019-06-24 18:50 | NUR ---
DISCHARGED VIA EMS BY STRETCHER.
--- NOTE | 2019-06-24 18:52 | NUR ---
CALLED Jimbo RUIZ RN, SIN TO NOTIFY RE:EMS HERE TO [facility] PT. NO RESPONSE, VOICEMAIL LEFT.
== END 2019-06-24 18:50 | disposition hospice, home (50) | DRG 682 ==
LOC: EDH 11:36 → EDHIP 12:33 → 2CH 06-21 06:25 → 2DH 06-22 18:42
PROVIDERS: ADMIT Internal Medicine; ATTEND Internal Medicine
DX: N17.9 Acute kidney failure, unspecified (principal); I50.23 Acute on chronic systolic (congestive) heart failure; D68.59 Other primary thrombophilia; I13.2 Hypertensive heart and chronic kidney disease with heart failure and with stage 5 chronic kidney disease, or end stage renal disease; N18.5 Chronic kidney disease, stage 5; E11.22 Type 2 diabetes mellitus with diabetic chronic kidney disease; E87.5 Hyperkalemia; I48.91 Unspecified atrial fibrillation; D64.9 Anemia, unspecified; D69.6 Thrombocytopenia, unspecified; E78.5 Hyperlipidemia, unspecified; E87.6 Hypokalemia; I25.10 Atherosclerotic heart disease of native coronary artery without angina pectoris; I25.5 Ischemic cardiomyopathy; I50.84 End stage heart failure; J45.909 Unspecified asthma, uncomplicated; K21.9 Gastro-esophageal reflux disease without esophagitis; K55.20 Angiodysplasia of colon without hemorrhage; M79.7 Fibromyalgia; M81.0 Age-related osteoporosis without current pathological fracture; Z80.3 Family history of malignant neoplasm of breast; Z82.3 Family history of stroke; Z82.49 Family history of ischemic heart disease and other diseases of the circulatory system; Z82.62 Family history of osteoporosis; Z83.3 Family history of diabetes mellitus; Z85.3 Personal history of malignant neoplasm of breast; Z86.711 Personal history of pulmonary embolism; Z86.718 Personal history of other venous thrombosis and embolism; Z86.73 Personal history of transient ischemic attack (TIA), and cerebral infarction without residual deficits; Z90.49 Acquired absence of other specified parts of digestive tract; Z95.5 Presence of coronary angioplasty implant and graft; E66.01 Morbid (severe) obesity due to excess calories; Z68.27 Body mass index [BMI] 27.0-27.9, adult; I95.9 Hypotension, unspecified
CPT/HCPCS: 36415; 71045; 76700; 76770; 80048; 80053; 80074; 80076; 81001; 82570; 82948; 83735; 83880; 83935; 84100; 84132; 84300; 85025; 85027; 93005; 93970; 93979; G0378; J0610; J1160; J1250; J1815; J1940; J2405; J3490; J7030; J7040